=== PATIENT | male | born 1985 | race Caucasian/White ===

== ENCOUNTER 2018-09-19 09:35 | Outpatient (CLI) | payer OTHER, SELFPAY ==
--- NOTE | 2018-09-19 09:31 | DI.RAD_ITS ---
SYMPTOMS/DIAGNOSIS: ULNA FRACTURE RIGHT FOREARM: A transverse fracture of the right ulnar shaft is demonstrated. There is evidence of callous at the fracture site. The fracture components in reasonable alignment. The fracture line is visible. The findings raising the possibility of nonunion. No prior images were extant at the time of this interpretation and prior studies can be retrieved, then addendum report will follow. RIGHT ELBOW: No bony or joint abnormality is seen.
== END 2018-09-19 09:55 ==
PROVIDERS: PCP Nurse Practitioner Family; Visit Provider Physician Assistant
DX: S52.22 Transverse fracture of shaft of ulna (principal)
CPT/HCPCS: 73080; 73090

== ENCOUNTER 2018-11-13 11:12 | Day surgery (SDC) | payer OTHER, SELFPAY ==
[2018-11-13] VITALS (10 sets, daily range): BP systolic 118–170; BP diastolic 69–94; PULSE 56–77; RESP 10–23; TEMP 35.5–36.4; O2SAT 96–98
[2018-11-13] MEDS: Lactated Ringers 1,000 ML 80 ML IV (12:05)
--- NOTE | 2018-11-13 12:14 | DI.RAD_ITS ---
SYMPTOMS/DIAGNOSIS: RIGHT ULNAR FRACTURE RIGHT WRIST IN THE OR: Fluoroscopy Time: 26.3 sec, 0.51mgy Intraoperative images demonstrate fixation of an ulnar fracture with a plate and screw device, the fracture in good alignment, orthopedic hardware in place.
[2018-11-13] MEDS: Bupivacaine LIPOSOME/PF 133 MG/10 ML VIAL IJ (12:52)
[2018-11-13] MEDS: Bupivacaine 0.5% Pres-Free 30 ML VIAL (12:52)
[2018-11-13] MEDS: ceFAZolin 2 GM/50 ML BAG IVPB (13:19)
--- NOTE | 2018-11-13 15:00 | PDOC.DSDIS_ITS ---
Discharge Plan Disposition Patient Disposition: HOME Condition: Good Discharge Details Reason For Visit: Repair non-union R ulna Attending Provider: Brett Dillard Primary Care Provider: Becca Hu Home Meds and New Rx's Prescriptions: New oxycodone-acetaminophen 5-325 mg tablet 1 tab PO Q6H PRN (Reason: pain) Qty: 20 RF: 0 ibuprofen 800 mg tablet 800 mg PO TID Qty: 30 RF: 0 Continued buprenorphine HCl 8 mg tablet, sublingual 8 mg SL DAILY RF: 0 ibuprofen 800 mg Tablet 800 mg PO BID PRNRF: 0 lamotrigine 100 mg Tablet 100 mg PO DAILY RF: 0 acetaminophen 325 mg Capsule 325 mg PO Q6H PRNRF: 0 Discharge Instructions Additional Instructions: Try to elevate R forearm above heart level as much as possible for next 48-72 hours. Try to bend and straighten fingers R hand 10 times/when awake to decrease pain and swelling. Keep dressings and splint dry and intact until return. Return to 's office in 2 weeks. Take ibuprofen as prescribed for 10 days to decrease swelling and inflammation. Take oxycodone for breakthru pain, if needed. Can use R hand as much as your discomfort allows. Referrals: Brett Dillard MD [ [facility] STAFF PHYSICIAN] - (f/u in 2 weeks.) Equipment/Supplies: Splint Activity:: Activity as Tolerated Remove Dressings/Wound Care:: Do Not Remove Shower/Bathe:: Cover Diet:: As Tolerated Discharge Orders Discharge Orders: Discharge Order (Routine); Ordered 11/13/18 Ordered By: Brett Dillard DS: Diagnosis Discharge Diagnosis (1) Closed fracture of ulna with nonunion: Status: Acute
[2018-11-13] MEDS: fentaNYL 100 MCG/2 ML VIAL IVP ×2 (15:25→15:30)
[2018-11-13] MEDS: Midazolam 2 MG/2 ML VIAL IVP ×2 (15:35→15:52)
--- NOTE | 2018-11-13 15:47 | DI.RAD_ITS ---
SYMPTOM/DIAGNOSIS: CHECK HARDWARE FOLLOWING NON UNION REPAIR PORTABLE RIGHT FOREARM: The images demonstrate fixation of an ulnar fracture with a plate and screw device. The fracture is in good alignment. Orthopedic hardware in place.
[2018-11-13] MEDS: HYDROmorphone 2 MG/ML VIAL IVP (16:09)
[2018-11-13] MEDS: oxyCODONE-CR 10 MG TABCR PO (16:43)
--- NOTE | 2018-11-14 12:35 | ROE_ITS ---
REPORT OF OPERATIVE PROCEDURE DATE OF PROCEDURE November 13, 2018 PREOPERATIVE DIAGNOSIS Nonunion fracture right ulnar shaft. POSTOPERATIVE DIAGNOSIS Nonunion fracture right ulnar shaft. PROCEDURE Repair of nonunion right ulnar shaft with compression plating. SURGEON Brett Dillard M.D. [employer] [place]. ANESTHESIA General, by Emilia Chan CRNA Supplemented with scalene nerve block. INDICATIONS This is a 33-year-old [facility] who presents with a painful nonun ion right ulnar midshaft. By x-ray, this represents a hypertrophic nonunion. Repair of the nonunion b y means of compression plating was advised to alleviate his pain and to hopefully gain union of the f racture. The risks and complications of the procedure have been explained to the patient in detail pr eoperatively. PROCEDURE DESCRIPTION The patient was taken to the Operating Room on 11/13/18. The right hand, wrist and forearm were prepp ed to above the elbow and then draped free in the usual sterile fashion. A proximal tourniquet had be en applied. The arm was exsanguinated by elevation for 2 minutes, and then the tourniquet was inflate d to 350 mmHg. A longitudinal incision was made along the subcutaneous border of the ulnar. The incision was carried directly down to bone. Subperiosteal dissection was then performed proximal and distal to the nonuni on site. At the nonunion site, hypertrophic bone and cartilage were removed with a rongeur and a cure tte. Continuity of the medullary canal was then established with the curette. The nonunion edges were mobilized and then temporarily reduced using bone clamps. Position of the fracture was checked with C-arm image intensifier. Once I felt it was satisfactory, I then applied a straight 8-hole dynamic co mpression plate to the dorsal lateral aspect of the ulna. The plate was then secured to the ulna pro ximal and distal with clamps. Once again, the position of the nonunion site was examined with the C-a rm in AP and lateral planes. It was felt that the position was satisfactory. I then proceeded to secu re the plate to the ulna using appropriate lengths nonlocking 3.5 screws. All eight holes were filled in the plate. Position of nonunion was then checked with the C-arm once again. The ulnar length was maintained. The radial angulation of the ulnar nonunion was corrected quite nicely. The wound was irrigated with Betadine and saline solution. The wound margins were infiltrated with 0. 5% Marcaine with epinephrine solution. Obvious bleeders were cauterized. I then packed 5 cc of demineralized bone matrix around the nonunion site mainly on the dorsum and on the volar and ulnar aspects. I did not apply any demineralized bone matrix to the intraosseous ligame nt side of the nonunion. The fascia was approximated over the plate using interrupted 3-way sutures o f #2-Vicryl suture material. The subcu was approximated with three interrupted #2-0 Vicryl sutures an d the skin edges were approximated with skin mack. Sterile dressings were applied and then a ulnar gutter splint was applied with a 6-inch Fernando bandage. The tourniquet was released, there was no aurelia kthrough bleeding through the dressings. The patient tolerated the procedure well and was discharged to the Recovery Room in good condition. The blood loss was minimal due to the tourniquet use. The patient was later discharged home from the Day [facility] when fully recovered from his general anesthesia. He was given his printed instructions. He is to elevate his right forearm above heart le xiao as much as possible for the next 48 hours. He is encouraged to flex and extend the fingers and th umb of his right hand 10 times an hour when awake to decrease swelling and prevent stiffness and pain . He is to keep the dressing and splint dry and intact until he follows up with Dr. Dillard in [facility]. He may use his right hand as much as discomfort allows. He is to take ibuprofen 800 mg p.o. t.i.d . for the next two weeks to help with inflammation and pain. He is given a prescription for breakthro ugh pain of oxycodone with APAP 5/325, one tablet every six hours if needed.
== END 2018-11-13 17:20 | disposition home or self-care (01) ==
PROVIDERS: PCP Nurse Practitioner Family; Visit Provider Orthopaedic Surgery
PROC: (CPT 25400; principal; 2018-11-13 13:00)
DX: S52.201K Unspecified fracture of shaft of right ulna, subsequent encounter for closed fracture with nonunion (principal); X58.XXXA Exposure to other specified factors, initial encounter; F11.20 Opioid dependence, uncomplicated
CPT/HCPCS: 25400; C1713; 76942; 73090; 73100; J0690; J1885; J2250; J2405; J3010; L3650

== ENCOUNTER 2018-11-27 10:30 | Outpatient (CLI) | payer OTHER, SELFPAY ==
--- NOTE | 2018-11-27 10:28 | DI.RAD_ITS ---
SYMPTOMS/DIAGNOSIS: PAIN, F/U RIGHT FOREARM AND RIGHT ELBOW: Comparison is with the prior examinations. There is a healing fracture involving the right ulna. It is traversed by a sideplate and screws. The orthopedic hardware appears in good position. No new fractures or dislocations are seen in the right elbow or forearm. There is soft tissue swelling about the mid forearm.
== END 2018-11-27 10:50 ==
PROVIDERS: PCP Nurse Practitioner Family; Visit Provider Orthopaedic Surgery
DX: S52.201K Unspecified fracture of shaft of right ulna, subsequent encounter for closed fracture with nonunion
CPT/HCPCS: 73080; 73090

== ENCOUNTER 2018-12-25 11:02 | Outpatient (CLI) | payer OTHER, SELFPAY ==
--- NOTE | 2018-12-25 10:38 | DI.RAD_ITS ---
SYMPTOMS/DIAGNOSIS: F/U RIGHT FOREARM: Two views were obtained and show plate and screw fixation of previously described mid ulnar fracture with no gross interval change in alignment in comparison with examination of November 27. There appears to be further healing at the fracture site.
== END 2018-12-25 11:22 ==
PROVIDERS: PCP Nurse Practitioner Family; Visit Provider Orthopaedic Surgery
DX: S52.201D Unspecified fracture of shaft of right ulna, subsequent encounter for closed fracture with routine healing (principal)
CPT/HCPCS: 73090

== ENCOUNTER 2019-02-25 00:14 | Outpatient (CLI) | payer OTHER, SELFPAY ==
--- NOTE | 2019-02-25 09:48 | DI.MRI_ITS ---
SYMPTOM/DIAGNOSIS: CLOSED RX RT ULNA WITH NONUNION, S/P SURGERY, DECREASED STRENGTH AND ROM MRI RIGHT FOREARM: 02/25 MRI examination of the forearm was performed according to the usual protocol with multi planar imaging. There is plate and screw fixation device of the ulna as noted on plain films. The patient reportedly has a mid ulnar non united fracture. Unfortunately the metallic artifact totally obscures the ulna from its proximal to distal extent. No radial abnormalities seen. No gross hematoma identified. CONCLUSION: Metallic artifact obscures the area of interest of the ununited mid ulnar fracture.
== END 2019-02-25 00:34 ==
PROVIDERS: PCP Nurse Practitioner Family; Visit Provider Physical Therapist
DX: S52.22 Transverse fracture of shaft of ulna (principal)
CPT/HCPCS: 73218